=== PATIENT | male | born 1955 | race Caucasian/White ===

== ENCOUNTER 2017-10-30 11:47 | Outpatient (CLI) | END 2017-10-30 11:48 | disposition home or self-care (01) | LOC: LAB 11:47 | PROVIDERS: ATTEND Physician Assistant | DX: I10 Essential (primary) hypertension (principal) | CPT/HCPCS: 36415; 80053; 80061; 85025 ==

== ENCOUNTER 2018-09-10 13:34 | Outpatient (POV) | END 2018-09-10 17:00 | LOC: OUTPT 13:34 | PROVIDERS: ATTEND Otolaryngology | DX: H91.90 Unspecified hearing loss, unspecified ear (principal) | CPT/HCPCS: 92557; 92567 ==

== ENCOUNTER 2024-02-25 12:17 | Observation (INO) ==
[2024-02-25] MEDS: ANTIVERT PO ONE (13:04)
--- NOTE | 2024-02-25 13:12 | ED.PDOC ---
General ED Provider: Dr. MILLER WATT MD Chief Complaint: Dizziness Stated Complaint: 56-year-old male history of CAD status post stents, presenting to the emergency department with dizziness. Patient states that he stood up today and it became significantly worse. He states that his been having this going on for the past month however became worse today. He states that he had associated nausea. Is worse when he stands up or turns his head. He is describing being off balance although he has not fallen or hit his head. He is not on blood thinners. He is not having any chest pain or shortness of breath. The only symptom he had in the past with his CAD was back pain and this is different than. He has not been sick recently. He is not have any ear pain. He has not having any palpitations blurry vision, unilateral weakness, slurred speech, personality deficits. Time Seen by Provider: 02/25/24 12:18 Information Source: Patient Primary Care Provider: VIKRAM SONG Nursing and Triage Documentation Reviewed and Agree: Yes What is Opioid Naive?: *Opioid Naive implies the patient is not already taking opioids or not chronically receiving opioids on a daily basis. *PRN dosing is not "usually" associated with tolerance. *Patients are at higher risk of over-sedation and aspiration. What is Opioid Tolerant?: *Opioid Tolerance implies less than the expected response to an opioid. *Acquired tolerance is defined by the patient taking 60mg of oral morphine daily (or equianalgesic dose of another opioid) for 1 week or more. *Often associated with chronic pain. *May take more than usual dose to achieve desired pain control. Review of Systems Review Of Systems Constitutional: Denies Chills or Fever Eyes: Reports No symptoms and Blurred vision; Denies Vision change Ears, Nose, Mouth, Throat: Reports No symptoms and Ear pain; Denies Throat pain Respiratory: Reports No symptoms; Denies Cough or Shortness of Breath Cardiac: Denies Chest pain, Edema, Irregular heart rate, Palpitations or Syncope GI: Reports No symptoms; Denies Abdominal pain : Reports No symptoms; Denies Dysuria or Discharge Musculoskeletal: Reports No symptoms; Denies Back pain or Joint pain Skin: Reports No symptoms; Denies Bruising or Change in color Neurological: Denies Anxiety, Depressed, Cognitive dysfunction, Headache, Tonic- Clonic seizures, Unable to move lower ext or Unable to move upper ext [facility] Medical History Hypertension Family History Mother Hypertension SISTER Hypertension Grandfather/Grandmother Diabetes Hypertension Surgical History History of gastrointestinal surgery Physical Exam Physical Exam Appearance: Reports Well-appearing Eyes: Reports DIEGO, EOMI and Other (Nystagmus when gaze to the left that is horizontal and fatigable) ENT: Reports Ears normal and Oropharynx normal Neck: Supple Respiratory: Reports Airway patent and Breath sounds clear; Denies Airway obstructed, Crackles or Rhonchi Cardiovascular: Reports RRR and Pulses normal GI/: Reports Soft and Nontender Musculoskeletal: Reports Normal strength and ROM intact Skin: Reports Warm Neurological: Reports Sensation intact, Motor intact, Reflexes intact, Cranial nerves intact, Alert, Oriented and Other ([id number] normal, lvkw-[id number] normal, rapid alternating movements are normal) Psychiatric: Reports Affect appropriate Interpretation EKG Interpretation EKG Interpretation By: ED Physician Time of EKG #1: 12:50 Rate: Normal Rhythm: Sinus Ectopy: None [place]: NL ST Segment: Normal Course Course 02/25/24 13:16 02/25/24 13:16 Orders, Labs, Meds: Lab Review 02/25/24 13:16 WBC 7.03 RBC 4.85 Hgb 15.3 Hct 46.1 MCV 95.1 H MCH 31.5 H MCHC 33.2 RDW Coeff of Geoffrey 12.9 Plt Count 139 L Immature Gran % (Auto) 0.0 Neut % (Auto) 53.7 Lymph % (Auto) 36.6 [place] % (Auto) 6.7 Eos % (Auto) 2.7 Baso % (Auto) 0.3 Neut # (Auto) 3.8 Lymph # (Auto) 2.6 [place] # (Auto) 0.5 Eos # (Auto) 0.2 Baso # (Auto) 0.0 Immature Gran # (Auto) 0.0 Sodium 139.0 Potassium 4.40 Chloride 107.0 Carbon Dioxide 25.0 Anion Gap 11.40 BUN 17.0 Creatinine 0.80 Estimated GFR (MDRD) 96.00 BUN/Creatinine Ratio 21.25 Glucose 114.0 H Calcium 9.40 Magnesium 2.20 Total Bilirubin 0.80 AST 23.0 ALT 20.0 Alkaline Phosphatase 111.0 POC Venous Troponin I 0.00 Troponin I Pending Total Protein 7.30 Albumin 4.30 Globulin 3.00 Albumin/Globulin Ratio 1.43 TSH Pending Orders Category Date Time Status EKG-(ED ONLY) Stat CARDIO 02/25/24 12:42 Completed NPO REMINDER: IMAGING ONCE CARE 02/25/24 13:00 Completed CBC W/ AUTO DIFF Stat LAB 02/25/24 13:16 Completed CMP [COMPREHENSIVE METABOLIC PANEL] Stat LAB 02/25/24 13:16 Results COVID [SARS COV-2 RNA RAPID ADENIKE] Stat LAB 02/25/24 17:00 Ordered MAGNESIUM Stat LAB 02/25/24 13:16 Results THYROID STIMULATING HORMONE Stat LAB 02/25/24 13:16 Results TROPONIN I Stat LAB 02/25/24 13:16 Results Iohexol [Omnipaque 350 mg/ml 100Ml] Meds 02/25/24 14:25 Discontinued 100 ml IVP ONCE ONE Meclizine HCl [Antivert] Meds 02/25/24 12:59 Discontinued 25 mg PO ONCE ONE CTA ANGIO HEAD Stat RADS 02/25/24 12:59 Completed CTA ANGIO NECK Stat RADS 02/25/24 12:59 Completed CXR [CHEST, 2 VIEWS PA & LAT] Stat RADS 02/25/24 13:00 Completed MRI BRAIN W/O CONTRAST Stat RADS 02/25/24 15:07 Completed Medications Discontinued Medications Generic Name Dose Route Start Last Admin Trade Name Freq PRN Reason Stop Dose Admin Iohexol 100 ml 02/25/24 14:25 02/25/24 14:26 Iohexol 350 Mg/Ml 100ml IVP 02/25/24 14:26 100 ml ONCE ONE Administration Meclizine HCl 25 mg 02/25/24 12:59 02/25/24 13:04 Meclizine Hcl 25 Mg Tablet PO 02/25/24 13:00 25 mg ONCE ONE Administration Vital Signs: Temp Pulse Resp BP Pulse Ox 02/25/24 13:36 47 L 18 132/65 97 02/25/24 12:32 97.6 F 55 L 18 145/106 H 97 Discharge Plan Discharge Patient Disposition: PLACED OBSERVATION Did you review [place] [employer]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 Patient states he does not feel like things are spinning but he does feel like things are off balance he is having some associated nausea as well worse with turning his head. He is not having any chest pain or shortness of breath. His heart rate is in the 50s on the monitor his blood pressure was in the 130s. He is afebrile he is well-appearing nontoxic. His exam was benign as reported above other than the left-sided nystagmus that was fatigable and horizontal. Sounds more likely vertigo than lightheadedness/near syncope however given his cardiac history we will get cardiac workup, EKG CBC CMP troponin TSH and mag for the mild bradycardia, will get CTA of his head and neck as well. Meclizine and Zofran, will reevaluate. CTAs did not show any acute disease, MRI was negative. Patient's heart rate did go down to the 40s, he is feeling better but given this I do want him to stay for telemetry monitoring, possible medication adjustment.
[2024-02-25 13:22] LABS: BASOPHILS % (AUTO) 0.3 % (0.0-3.0); EOSINOPHILS # (AUTO) 0.2 K/ul (0.0-0.7); EOSINOPHILS % (AUTO) 2.7 % (0.0-7.0); HEMATOCRIT 46.1 % (42.0-52.0); HEMOGLOBIN 15.3 g/dl (14.0-18.0); LYMPHOCYTES # (AUTO) 2.6 K/uL (0.60-3.4); LYMPHOCYTES % (AUTO) 36.6 (10.0-50.0); MEAN CORPUSCULAR HEMOGLOBIN 31.5 pg (27.0-31.0); MEAN CORPUSCULAR HGB CONC 33.2 (31.8-35.4); MEAN CORPUSCULAR VOLUME 95.1 fl (80.0-94.0); MONOCYTES # (AUTO) 0.5 K/uL (0.4-2.0); MONOCYTES % (AUTO) 6.7 (0-10); NEUTROPHILS # (AUTO) 3.8 K/ul (2.0-6.9); NEUTROPHILS % (AUTO) 53.7 % (42.2-75.2); PLATELET COUNT 139 10^3/uL (140-440); RDW COEFFICIENT OF VARIATION 12.9 % (11.6-14.8); RED BLOOD COUNT 4.85 10^6/ul (4.70-6.10); WHITE BLOOD COUNT 7.03 K/ul (4.2-10.2)
[2024-02-25] MEDS: OMNIPAQUE 350 MG/ML 100ML IVP ONE (14:26)
--- NOTE | 2024-02-25 15:01 | DI ---
EXAM: CHEST RADIOGRAPH (2 VIEW) TECHNIQUE: AP and Lateral Chest Radiographs. HISTORY: Swelling COMPARISON: 08/02/2021 FINDINGS: Lines, Tubes, Devices: None. Lungs and Pleura: No focal consolidation. No pleural effusion. No pneumothorax. No pulmonary edema . Cardiac silhouette: Stable. Postsurgical changes Bones: No acute abnormality. IMPRESSION: No acute radiographic abnormality.
--- NOTE | 2024-02-25 15:20 | CT ---
EXAM: CTA HEAD HISTORY: Vertigo. COMPARISON: Brain CT dated 02/11/2019. TECHNIQUE: Unenhanced CT of the head was performed from the skull base to the vertex. CT angiography of the head was performed with 3D/MIP coronal and sagittal reconstructions for evaluation of the cir piper of [place]. FINDINGS: CT head: No intracranial hemorrhage or extra-axial collection. No mass, mass effect or midline shift. The barrett -white matter differentiation is preserved. The ventricles are normal in size. The basal cisterns are patent. The visualized paranasal sinuses and mastoid air cells are clear. The orbits are unrema rkable. The visualized osseous structures are unremarkable. CTA head: There is atherosclerotic calcification of the cavernous and supraclinoid internal carotid arteries. The anterior and middle cerebral arteries are normal in contour and caliber without large vessel occl usion. The vertebrobasilar system is patent. The superior cerebellar and posterior cerebral arteries are no rmal in contour and caliber. There is no intracranial aneurysm or arteriovenous malformation. IMPRESSION: 1. No acute intracranial findings. 2. No large vessel occlusion or high grade stenosis within the [place] of [place]. All CT scans are performed using dose optimization techniques as appropriate to the performed exam an d include at least one of the following: Automated exposure control, adjustment of the mA and/or kV according t o size, and the use of iterative reconstruction technique.
--- NOTE | 2024-02-25 15:22 | CT ---
EXAM: CTA NECK HISTORY: Vertigo TECHNIQUE: CT angiography of the neck was performed with coronal and sagittal 3-D MIPS reconstructio ns. Internal carotid artery stenosis are assessed utilizing NASCET criteria. COMPARISON: None. FINDINGS: The visualized portions of the aortic arch are within normal limits. There is common origin of the br achiocephalic and left common carotid arteries. The origin of the right common carotid artery is patent. There is retropharyngeal course of the prox imal right cervical ICA. There is atherosclerotic calcification at the right carotid bifurcation and slightly extending into the proximal internal carotid artery without significant stenosis. The origin of the left common carotid artery is patent. There is retropharyngeal course of the proxi mal left cervical ICA. There is atherosclerotic calcification at the left carotid bifurcation and sl ightly extending into the proximal internal carotid artery without significant stenosis. There is moderate focal stenosis at the origin of the right vertebral artery. The left vertebral artery is normal in contour and caliber without significant stenosis. No aneurysm or vascular malformation is identified. There is multilevel disc desiccation and degenerative change involving posterior disc osteophyte comp lexes, facet joint hypertrophy, and uncovertebral joint hypertrophy resulting in various degrees of c entral canal and neural foraminal stenosis. IMPRESSION: 1. Calcified plaques at bilateral carotid bifurcations without hemodynamically significant stenosis. 2. Moderate focal stenosis at the origin of the right vertebral artery. All CT scans are performed using dose optimization techniques as appropriate to the performed exam an d include at least one of the following: Automated exposure control, adjustment of the mA and/or kV according t o size, and the use of iterative reconstruction technique.
--- NOTE | 2024-02-25 16:29 | MRI ---
EXAM: BRAIN MRI WITHOUT CONTRAST HISTORY: Vertigo. TECHNIQUE: Multiplanar and multisequence MRI of the brain without the administration of intravenous contrast. COMPARISON: Brain CT dated 02/11/2019. FINDINGS: There is no intracranial mass. There is no acute ischemic infarct or acute intracranial hemorrhage. There is mild cerebral parenchymal volume loss. There is no hydrocephalus. Multiple foci of T2/FLAIR hyperintense signal are present in the subcortical and periventricular whit e matter, most commonly seen in chronic white matter microvascular ischemic changes. The basilar cisterns are patent. The posterior fossa structures are within normal limits. Mucous retention cysts are noted in the left maxillary sinus. Mild mucosal thickening is noted in bi lateral ethmoid air cells. The mastoid air cells are clear. The orbits are within normal limits. No calvarial abnormality is identified. IMPRESSION: 1. No acute intracranial findings. 2. Mild cerebral atrophy. 3. Mild chronic white matter microvascular ischemic changes.
[2024-02-25 17:15] LABS: SARS COV-2 RNA RAPID NAAT NEGATIVE (NEGATIVE)
[2024-02-25 18:24] VITALS: BMI 30.4
[2024-02-25] MEDS ORDERED: ZOFRAN SDV IVP PRN (18:34)
[2024-02-25] MEDS ORDERED: TYLENOL PO PRN (18:34)
[2024-02-25] MEDS: LACTATED RINGERS 1,000 ML IV SCH (19:18)
[2024-02-25] MEDS ORDERED: VENTOLIN HFA IH PRN (20:07)
[2024-02-25] MEDS: FLOMAX PO SCH (21:09)
[2024-02-25] MEDS: LIPITOR PO SCH (21:09)
[2024-02-26 02:08] VITALS: RESP 16
[2024-02-26 05:23] LABS: BASOPHILS % (AUTO) 0.2 % (0.0-3.0); EOSINOPHILS # (AUTO) 0.3 K/ul (0.0-0.7); EOSINOPHILS % (AUTO) 2.9 % (0.0-7.0); HEMATOCRIT 45.6 % (42.0-52.0); IMMATURE GRANULOCYTE % (AUTO) 0.1 % (0.0-5.0); LYMPHOCYTES # (AUTO) 3.2 K/uL (0.60-3.4); LYMPHOCYTES % (AUTO) 37.3 (10.0-50.0); MEAN CORPUSCULAR HEMOGLOBIN 30.9 pg (27.0-31.0); MEAN CORPUSCULAR HGB CONC 32.9 (31.8-35.4); MONOCYTES # (AUTO) 0.6 K/uL (0.4-2.0); MONOCYTES % (AUTO) 7.1 (0-10); NEUTROPHILS # (AUTO) 4.5 K/ul (2.0-6.9); NEUTROPHILS % (AUTO) 52.4 % (42.2-75.2); PLATELET COUNT 142 10^3/uL (140-440); RDW COEFFICIENT OF VARIATION 13.1 % (11.6-14.8); RED BLOOD COUNT 4.85 10^6/ul (4.70-6.10); WHITE BLOOD COUNT 8.56 K/ul (4.2-10.2)
[2024-02-26 05:37] LABS: ALBUMIN 3.9 g/dL (3.5-5.0); BILIRUBIN,TOTAL 0.7 mg/dL (0.2-1.3); CREATININE 0.8 mg/dL (0.60-1.10); POTASSIUM 3.9 mmol/L (3.5-5.1); TOTAL PROTEIN 6.8 g/dL (6.3-8.2)
[2024-02-26 08:18] LABS: TROPONIN I < 0.012 ng/ml (0.0000-0.120)
[2024-02-26] MEDS: ZESTRIL PO SCH (08:20)
[2024-02-26] MEDS: ASPIRIN CHEWABLE PO SCH (08:21)
[2024-02-26 08:37] VITALS: BP 130/76; PULSE 64; TEMP 97.7
--- NOTE | 2024-02-26 10:20 | DCSUM ---
Hospital Provider Hospital Provider: THIAGO MARTIN PA-C, [facility] Primary Care Physician Primary Care Physician: VIKRAM SONG [facility] Course Vital Signs: Most Recent Vital Signs Temperature 97.7 F 02/26/24 08:15 Temperature Source Oral 02/26/24 08:15 Temperature Source Temporal Artery Scan 02/25/24 12:32 Pulse Rate 64 02/26/24 08:15 Respiratory Rate 16 02/26/24 08:15 Blood Pressure 130/76 02/26/24 08:15 Blood Pressure Mean 94 02/26/24 08:15 Blood Pressure Left Arm 144/69 02/25/24 18:06 Blood Pressure Location Left Arm 02/26/24 08:15 Blood Pressure Position Sitting 02/26/24 08:15 O2 Sat by Pulse Oximetry 96 02/26/24 08:15 Oxygen Delivery Method Room Air 02/26/24 08:15 Height 6 ft 02/25/24 18:06 Weight 102 kg 02/25/24 18:06 Telemetry Type Remote Telemetry 02/26/24 07:26 Telemetry Monitoring Continues 02/26/24 07:26 Telemetry Heart Rate 58 L 02/26/24 07:00 Telemetry SPO2 96 02/25/24 19:00 EKG OR Interval 0.19 02/26/24 07:00 EKG QRS Interval 0.09 02/26/24 07:00 Telemetry Strip Reading Interpolated PVC's 02/26/24 07:26 Lab Results Last 24 Hours: 02/26/24 02/25/24 02/25/24 05:18 17:00 13:16 WBC 8.56 7.03 RBC 4.85 4.85 Hgb 15.0 15.3 Hct 45.6 46.1 MCV 94.0 95.1 H MCH 30.9 31.5 H MCHC 32.9 33.2 RDW Coeff of Geoffrey 13.1 12.9 Plt Count 142 139 L Immature Gran % (Auto) 0.1 0.0 Neut % (Auto) 52.4 53.7 Lymph % (Auto) 37.3 36.6 [place] % (Auto) 7.1 6.7 Eos % (Auto) 2.9 2.7 Baso % (Auto) 0.2 0.3 Neut # (Auto) 4.5 3.8 Lymph # (Auto) 3.2 2.6 [place] # (Auto) 0.6 0.5 Eos # (Auto) 0.3 0.2 Baso # (Auto) 0.0 0.0 Immature Gran # (Auto) 0.0 0.0 Sodium 139.0 139.0 Potassium 3.90 4.40 Chloride 106.0 107.0 Carbon Dioxide 24.0 25.0 Anion Gap 12.90 11.40 BUN 16.0 17.0 Creatinine 0.80 0.80 Estimated GFR (MDRD) 96.00 96.00 BUN/Creatinine Ratio 20.00 21.25 Glucose 127.0 H 114.0 H Calcium 9.00 9.40 Magnesium 2.20 Total Bilirubin 0.70 0.80 AST 23.0 23.0 ALT 21.0 20.0 Alkaline Phosphatase 112.0 111.0 POC Venous Troponin I 0.00 Troponin I < 0.012 Total Protein 6.80 7.30 Albumin 3.90 4.30 Globulin 2.90 3.00 Albumin/Globulin Ratio 1.34 1.43 TSH 2.500 SARS CoV-2 RNA Rapid ADENIKE Negative Discharge Instructions Discharge Planning: Discharge Planning > 40 minutes If patient is discharged with left ventricular systolic dysfunction: Discharged with a beta marilee? [] If no, why not? [] Discharged with an jaron/arb? [] If no, why not? [] Discharge Medications: Medications at Discharge (Home Meds & RX) tamsulosin 0.4 mg capsule 0.4 mg PO BEDTIME 09/10/18 albuterol sulfate 90 mcg/actuation aerosol inhaler 2 puff inhalation Q6H PRN Wheezing 08/02/21 amiodarone 200 mg tablet 200 mg PO DAILY 08/02/21 aspirin 81 mg chewable tablet 81 mg PO DAILY 08/02/21 atorvastatin 80 mg tablet 40 mg PO BEDTIME 08/02/21 budesonide-formoterol HFA 160 mcg-4.5 mcg/actuation aerosol inhaler (Symbicort) 2 puff inhalation BID 08/02/21 cyclobenzaprine 10 mg tablet 10 mg PO BEDTIME PRN Muscle Pain 08/02/21 furosemide 40 mg tablet 40 mg PO DAILY 08/02/21 gabapentin 600 mg tablet 600 mg PO DAILY 08/02/21 metoprolol tartrate 50 mg tablet 50 mg PO BID 08/02/21 pantoprazole 40 mg tablet,delayed release 40 mg PO BEDTIME 08/02/21 potassium chloride 10 mEq tablet,extended release 10 meq PO BID 08/02/21 ticagrelor 90 mg tablet (Brilinta) 90 mg PO DAILY 08/02/21 tramadol 50 mg tablet 50 mg PO Q6H PRN Pain 08/02/21 PREVAGEN 1 tab PO DAILY 02/25/24 lisinopril 2.5 mg tablet 2.5 mg PO DAILY 02/25/24 Discharge Plan Discharge Discharge Orders: Discharge Patient (ONCE); Ordered 02/26/24 Ordered By: THIAGO MARTIN Activity Restrictions/Additional Instructions: DISCHARGE TO HOME HOLD YOUR METOPROLOL UNTIL FOLLOW UP WITH PCP, MAY BE ABLE TO START IT AT A LOWER DOSE DEPENDING ON YOUR HEART RATE/DIZZINESS FALL PRECAUTIONS F/U WITH CARDIOLOGY SCHEDULED DIET: HEART HEALTHY Instructions: Bradycardia (DC), Dizziness (GEN) Care Plan Goals: Problem: Risk for falls Goal: No falls or injury Instructions: Have no throw rugs on the floor Make sure pathway is clear of all objects Use assistance devices if applicable Problem: Cardiac Dysrhythmia Goal: Adequate cardiac output Instructions: Apply oxygen as ordered Medication as ordered Monitor for any changes in rhythm Notify MD of any changes Patient Disposition: HOME SELF-CARE Prescriptions: Continued tamsulosin 0.4 MG capsule 0.4 mg PO BEDTIME atorvastatin 80 mg tablet 40 mg PO BEDTIME aspirin 81 mg Tablet,Chewable 81 mg PO DAILY albuterol sulfate 90 mcg/actuation Hfa Aerosol Inhaler 2 puff INHALATION Q6H PRN (Reason: Wheezing) lisinopril 2.5 mg tablet 2.5 mg PO DAILY PREVAGEN 1 tab PO DAILY Discontinued furosemide 40 mg tablet 40 mg PO DAILY cyclobenzaprine [Flexeril] 10 mg Tablet 10 mg PO BEDTIME PRN (Reason: Muscle Pain) gabapentin 600 mg Tablet 600 mg PO DAILY amiodarone 200 mg tablet 200 mg PO DAILY potassium chloride 10 mEq tablet extended release 10 meq PO BID tramadol 50 mg Tablet 50 mg PO Q6H PRN (Reason: Pain) pantoprazole 40 mg tablet,delayed release (DR/EC) 40 mg PO BEDTIME metoprolol tartrate 50 mg tablet 50 mg PO BID budesonide-formoterol [Symbicort] 160-4.5 mcg/actuation HFA aerosol inhaler 2 puff INHALATION BID Patient Comments: INHALE 2 PUFFS BY MOUTH TWICE DAILY. RINSE MOUTH WITH WATER AFTER USE FOR AFTERTASTE AND INCIDENCE OF CANDIDIASIS. 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
--- NOTE | 2024-02-26 11:26 | PCM.SS ---
Provider Provider[facility] Ad[facility] Date Admission Date: 02/25/24 Discharge Date Discharge Date: 02/26/24 Primary Care Physician Primary Care Physician: VIKRAM SONG Chief Complaint Reason For Visit: LIGHTHEADEDNESS, BRADYCARDIA History of Present Illness History of Present Illness: Admitted 02/25/24 17:21, this 69 year old /WHITE/M with past medical history of COPD, hypertension, CAD's status post stenting who presented to the ER with chief complaint of dizziness on and off for the past month. Patient states that it was significantly worse yesterday while he was at home. He was up and about in his home but otherwise nothing specific. No chest pain or shortness of breath, no unilateral weakness no vision changes. In the ER patient had a CXR, CTA head and neck which were negative for any acute findings. He also had an MRI of the brain without which was negative for any acute findings. He was noted to have some bradycardia dipping down into the 40s on telemetry. He does take metoprolol. He follows with cardiology at [facility] in [place] once yearly. He was admitted to [facility] for further monitoring. Orthostats negative. Patient's metoprolol has been held. This morning his heart rate is consistently in the 60s and even hitting the 70s often. He denies dizziness. He has been ambulatory. I recommended getting an echo as it appears he did not get the echo performed at [facility] that was ordered back in May. However he states that he needs to leave and cannot wait to get the echo done this afternoon. 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 Otherwise plan to hold his metoprolol until his follow-up with his PCP next week. If his heart rate is improved and his dizziness is resolved, it was likely caused by his bradycardia. Can consider starting his metoprolol back at a lower dose due to his history of CAD. Patient is agreeable to this plan of care. [facility] Medical History Arthritis M19.90 - Unspecified osteoarthritis, unspecified site (ICD-10) COPD (chronic obstructive pulmonary disease) J44.9 - Chronic obstructive pulmonary disease, unspecified (ICD-10) CAD (coronary artery disease) I25.10 - Atherosclerotic heart disease of [place] coronary artery without angina pectoris (ICD-10) Hypertension I10 - Essential (primary) hypertension (ICD-10) Surgical History H/O shoulder surgery Z98.890 - Other specified postprocedural states (ICD-10) S/P CABG x 3 (06/2021) Z95.1 - Presence of aortocoronary bypass graft (ICD-10) H/O heart artery stent (2020) Z95.5 - Presence of coronary angioplasty implant and graft (ICD-10) History of gastrointestinal surgery Z98.890 - Other specified postprocedural states (ICD-10) Family History Mother Hypertension SISTER Hypertension Grandfather/Grandmother Diabetes Hypertension Social History Smoking and tobacco status: Current every day smoker Tobacco type: cigarettes Smoking packs per day: 1 Smoking cigarettes per day: 20.0 Medications Mecications: Medications at Discharge (Home Meds & RX) tamsulosin 0.4 mg capsule 0.4 mg PO BEDTIME 09/10/18 albuterol sulfate 90 mcg/actuation aerosol inhaler 2 puff inhalation Q6H PRN Wheezing 08/02/21 aspirin 81 mg chewable tablet 81 mg PO DAILY 08/02/21 atorvastatin 80 mg tablet 40 mg PO BEDTIME 08/02/21 PREVAGEN 1 tab PO DAILY 02/25/24 lisinopril 2.5 mg tablet 2.5 mg PO DAILY 02/25/24 Allergies Allergies Allergy/AdvReac Type Severity Reaction Status Date / Time oxycodone AdvReac Unknown Verified 02/25/24 12:30 Review of Systems Constitutional: Denies Fever, Fatigue or Weakness Head: Reports Normocephalic and Atraumatic Cardiovascular: Denies Chest pain, Chest Pressure or Edema Respiratory: Denies Cough or Shortness of air Gastrointestinal: Denies Nausea, Vomiting, Diarrhea, Abdominal pain or Melena Genitourinary: Denies Dysuria or Hematuria Neurological: Reports Dizziness; Denies Headache, Syncope, Loss of Conciousness, Numbness, Weakness or Problems with walking Physical Examination Appearance: Positive Well-appearing, Well-nourished, No Apparent Distress and Alert and Oriented x3 Head: Positive Normocephalic and Atraumatic Eyes: Positive DIEGO Neck: Positive Supple and Non-Tender Heart: Positive RRR Respiratory: Positive Breath Sounds Clear, Bilaterally; Negative Crackles, Rhonchi or Wheezes GI/: Positive Soft, Nontender and Bowel sounds normal Extremities: Negative Edema Neurological: Positive Cranial nerves intact, Alert and Oriented Psychiatric: Positive Normal Judgement, Normal Insight, Affect Appropriate and Mood Appropriate Vital Signs (Last 4 Hours) Vital Signs Last 4 Hours: Vital Signs: Last 4 Hours 02/26/24 07:26 02/26/24 08:00 02/26/24 08:15 Temperature 97.7 F Temperature Source Oral Pulse Rate 64 Respiratory Rate 16 Blood Pressure 130/76 Blood Pressure Mean 94 Blood Pressure Location Left Arm Blood Pressure Position Sitting O2 Sat by Pulse Oximetry 96 Oxygen Delivery Method Room Air Room Air Telemetry Type Remote Telemetry Telemetry Monitoring Continues Telemetry Strip Reading Interpolated PVC's 02/26/24 09:00 02/26/24 10:00 Temperature Temperature Source Pulse Rate Respiratory Rate Blood Pressure Blood Pressure Mean Blood Pressure Location Blood Pressure Position O2 Sat by Pulse Oximetry Oxygen Delivery Method Room Air Room Air Telemetry Type Telemetry Monitoring Telemetry Strip Reading Labs This Visit Labs This Visit: Labs This Visit 02/25/24 02/25/24 02/26/24 13:16 17:00 05:18 WBC 7.03 8.56 RBC 4.85 4.85 Hgb 15.3 15.0 Hct 46.1 45.6 MCV 95.1 H 94.0 MCH 31.5 H 30.9 MCHC 33.2 32.9 RDW Coeff of Geoffrey 12.9 13.1 Plt Count 139 L 142 Immature Gran % (Auto) 0.0 0.1 Neut % (Auto) 53.7 52.4 Lymph % (Auto) 36.6 37.3 [place] % (Auto) 6.7 7.1 Eos % (Auto) 2.7 2.9 Baso % (Auto) 0.3 0.2 Neut # (Auto) 3.8 4.5 Lymph # (Auto) 2.6 3.2 [place] # (Auto) 0.5 0.6 Eos # (Auto) 0.2 0.3 Baso # (Auto) 0.0 0.0 Immature Gran # (Auto) 0.0 0.0 Sodium 139.0 139.0 Potassium 4.40 3.90 Chloride 107.0 106.0 Carbon Dioxide 25.0 24.0 Anion Gap 11.40 12.90 BUN 17.0 16.0 Creatinine 0.80 0.80 Estimated GFR (MDRD) 96.00 96.00 BUN/Creatinine Ratio 21.25 20.00 Glucose 114.0 H 127.0 H Calcium 9.40 9.00 Magnesium 2.20 Total Bilirubin 0.80 0.70 AST 23.0 23.0 ALT 20.0 21.0 Alkaline Phosphatase 111.0 112.0 POC Venous Troponin I 0.00 Troponin I < 0.012 Total Protein 7.30 6.80 Albumin 4.30 3.90 Globulin 3.00 2.90 Albumin/Globulin Ratio 1.43 1.34 TSH 2.500 SARS CoV-2 RNA Rapid ADENIKE Negative Imaging Imaging: EXAM: CTA HEAD HISTORY: Vertigo. COMPARISON: Brain CT dated 02/11/2019. TECHNIQUE: Unenhanced CT of the head was performed from the skull base to the vertex. CT angiography of the head was performed with 3D/MIP coronal and sagittal reconstructions for evaluation of the [place]. FINDINGS: CT head: No intracranial hemorrhage or extra-axial collection. No mass, mass effect or midline shift. The barrett-white matter differentiation is preserved. The ventricles are normal in size. The basal cisterns are patent. The visualized paranasal sinuses and mastoid air cells are clear. The orbits are unremarkable. The visualized osseous structures are unremarkable. CTA head: There is atherosclerotic calcification of the cavernous and supraclinoid internal carotid arteries. The anterior and middle cerebral arteries are normal in contour and caliber without large vessel occlusion. The vertebrobasilar system is patent. The superior cerebellar and posterior cerebral arteries are normal in contour and caliber. There is no intracranial aneurysm or arteriovenous malformation. IMPRESSION: 1. No acute intracranial findings. 2. No large vessel occlusion or high grade stenosis within the [place]. EXAM: CTA NECK HISTORY: Vertigo TECHNIQUE: CT angiography of the neck was performed with coronal and sagittal 3-D MIPS reconstructions. Internal carotid artery stenosis are assessed utilizing NASCET criteria. COMPARISON: None. FINDINGS: The visualized portions of the aortic arch are within normal limits. There is common origin of the brachiocephalic and left common carotid arteries. The origin of the right common carotid artery is patent. There is retropharyngeal course of the proximal right cervical ICA. There is atherosclerotic calcification at the right carotid bifurcation and slightly extending into the proximal internal carotid artery without significant stenosis. The origin of the left common carotid artery is patent. There is retropharyngeal course of the proximal left cervical ICA. There is atherosclerotic calcification at the left carotid bifurcation and slightly extending into the proximal internal carotid artery without significant stenosis. There is moderate focal stenosis at the origin of the right vertebral artery. The left vertebral artery is normal in contour and caliber without significant stenosis. No aneurysm or vascular malformation is identified. There is multilevel disc desiccation and degenerative change involving posterior disc osteophyte complexes, facet joint hypertrophy, and uncovertebral joint hypertrophy resulting in various degrees of central canal and neural foraminal stenosis. IMPRESSION: 1. Calcified plaques at bilateral carotid bifurcations without hemodynamically significant stenosis. 2. Moderate focal stenosis at the origin of the right vertebral artery. EXAM: BRAIN MRI WITHOUT CONTRAST HISTORY: Vertigo. TECHNIQUE: Multiplanar and multisequence MRI of the brain without the administration of intravenous contrast. COMPARISON: Brain CT dated 02/11/2019. FINDINGS: There is no intracranial mass. There is no acute ischemic infarct or acute intracranial hemorrhage. There is mild cerebral parenchymal volume loss. There is no hydrocephalus. Multiple foci of T2/FLAIR hyperintense signal are present in the subcortical and periventricular white matter, most commonly seen in chronic white matter microvascular ischemic changes. The basilar cisterns are patent. The posterior fossa structures are within normal limits. Mucous retention cysts are noted in the left maxillary sinus. Mild mucosal thickening is noted in bilateral ethmoid air cells. The mastoid air cells are clear. The orbits are within normal limits. No calvarial abnormality is identified. IMPRESSION: 1. No acute intracranial findings. 2. Mild cerebral atrophy. 3. Mild chronic white matter microvascular ischemic changes. EXAM: CHEST RADIOGRAPH (2 VIEW) TECHNIQUE: AP and Lateral Chest Radiographs. HISTORY: Swelling COMPARISON: 08/02/2021 FINDINGS: Lines, Tubes, Devices: None. Lungs and Pleura: No focal consolidation. No pleural effusion. No pneumothorax. No pulmonary edema. Cardiac silhouette: Stable. Postsurgical changes Bones: No acute abnormality. IMPRESSION: No acute radiographic abnormality. Review Review Statement: I have independently reviewed and interpreted the labs/EKGs/imaging that were ordered by the ER provider. I have reviewed all outside records that are available currently in our EMR including imaging/notes/labs from previous visits. Plan Reccomendations/Plan: 1. Symptomatic bradycardia - Pt experiencing dizziness. Holding metoprolol. Recommended echo but patient does not want to wait til later in the day to get it done. Tele. F/u cards outpatient. 2. Dizziness - Could be due to bradycardia, HR down in 40s. Holding metoprolol. CTA h/n and MRI brain without any acute findings. Does show vertebral stenosis. Otherwise negative. 3. Hypertension - Hold metoprolol 4. CAD s/p stenting - Hold metoprolol, f/u outpt 5. Hyperlipidemia - Cont atorvastatin 6. BPH - Cont tamsulosin In the ER patient had a CXR, CTA head and neck which were negative for any acute findings. He also had an MRI of the brain without which was negative for any acute findings. He was noted to have some bradycardia dipping down into the 40s on telemetry. He does take metoprolol. He follows with cardiology at [facility] in [place] once yearly. He was admitted to [facility] for further monitoring. Orthostats negative. Patient's metoprolol has been held. Hydrated gently overnight. This morning his heart rate is consistently in the 60s and even hitting the 70s often. He denies dizziness. He has been ambulatory. I recommended getting an echo as it appears he did not get the echo performed at [facility] that was ordered back in May. However he states that he needs to leave and cannot wait to get the echo done this afternoon. 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 Otherwise plan to hold his metoprolol until his follow-up with his PCP next week. If his heart rate is improved and his dizziness is resolved, it was likely caused by his bradycardia. Can consider starting his metoprolol back at a lower dose due to his history of CAD. Patient is agreeable to this plan of care. Discharge diagnoses: 1. Symptomatic bradycardia, improved 2. Dizziness, resolved 3. Hypertension 4. CAD s/p stenting 5. Hyperlipidemia 6. BPH Additional Planning: Case discussed with ED Physician, Dr. Renee. DVT Prophylaxis: ambulation Advanced Care Plannin minutes spent discussing advance care planning. Smoking Cessation: 3 minutes spent discussing smoking cessation. Admit to: Obs Discussed Plan of Care with Dr. Dorothea Piña. Review With Patient Reviewed with Patient and Family: Patient and family have been counseled on condition and care plan and have no immediate questions. I have personally discussed and reviewed the patient's visit/current labs/imaging/decision making with Dr. Dorothea Piña, my supervising attending. Total number of minutes spent with patient [85] min. More than 50% of the time spent with this patient was devoted to counseling and coordination of care. Time of Admission:02/25/24 17:21 Time of Discharge: 02/26/24 1030 Discharge Plan Discharge Discharge Orders: Discharge Patient (ONCE); Ordered 02/26/24 Ordered By: THIAGO MARTIN Activity Restrictions/Additional Instructions: DISCHARGE TO HOME HOLD YOUR METOPROLOL UNTIL FOLLOW UP WITH PRIMARY CARE PROVIDER, MAY BE ABLE TO START IT AT A LOWER DOSE DEPENDING ON YOUR HEART RATE/DIZZINESS FALL PRECAUTIONS F/U WITH CARDIOLOGY SCHEDULED DIET: HEART HEALTHY Instructions: Bradycardia (DC), Dizziness (GEN), Fall Prevention (DC) Care Plan Goals: Problem: Risk for falls Goal: No falls or injury Instructions: Have no throw rugs on the floor Make sure pathway is clear of all objects Use assistance devices if applicable Problem: Cardiac Dysrhythmia Goal: Adequate cardiac output Instructions: Apply oxygen as ordered Medication as ordered Monitor for any changes in rhythm Notify MD of any changes Patient Disposition: HOME SELF-CARE Prescriptions: Continued tamsulosin 0.4 MG capsule 0.4 mg PO BEDTIME atorvastatin 80 mg tablet 40 mg PO BEDTIME aspirin 81 mg Tablet,Chewable 81 mg PO DAILY albuterol sulfate 90 mcg/actuation Hfa Aerosol Inhaler 2 puff INHALATION Q6H PRN (Reason: Wheezing) lisinopril 2.5 mg tablet 2.5 mg PO DAILY PREVAGEN 1 tab PO DAILY Discontinued furosemide 40 mg tablet 40 mg PO DAILY cyclobenzaprine [Flexeril] 10 mg Tablet 10 mg PO BEDTIME PRN (Reason: Muscle Pain) gabapentin 600 mg Tablet 600 mg PO DAILY amiodarone 200 mg tablet 200 mg PO DAILY potassium chloride 10 mEq tablet extended release 10 meq PO BID tramadol 50 mg Tablet 50 mg PO Q6H PRN (Reason: Pain) pantoprazole 40 mg tablet,delayed release (DR/EC) 40 mg PO BEDTIME metoprolol tartrate 50 mg tablet 50 mg PO BID budesonide-formoterol [Symbicort] 160-4.5 mcg/actuation HFA aerosol inhaler 2 puff INHALATION BID Patient Comments: INHALE 2 PUFFS BY MOUTH TWICE DAILY. RINSE MOUTH WITH WATER AFTER USE FOR AFTERTASTE AND INCIDENCE OF CANDIDIASIS. DO NOT SWALLOW Brilinta 90 mg tablet 90 mg PO DAILY Did you review [place] THIRD OFFICER for ALL controlled substances?: Not Applicable Discussed opioids are addictive and Narcan is available by prescription or from pharmacy.: No Condition: Stable
== END 2024-02-26 12:05 | disposition home or self-care (01) ==
LOC: SCU 12:17 → ED 12:17 → SCU 18:07
PROVIDERS: ADMIT Hospitalist; ATTEND Physician Assistant
DX: Z51.81 Encounter for therapeutic drug level monitoring; I10 Essential (primary) hypertension; Z95.5 Presence of coronary angioplasty implant and graft; F17.210 Nicotine dependence, cigarettes, uncomplicated; I25.10 Atherosclerotic heart disease of native coronary artery without angina pectoris; R42 Dizziness and giddiness; R00.1 Bradycardia, unspecified; Z20.822 Contact with and (suspected) exposure to COVID-19; Z79.899 Other long term (current) drug therapy; E78.5 Hyperlipidemia, unspecified; N40.0 Benign prostatic hyperplasia without lower urinary tract symptoms